=== PATIENT | male | born 1955 | race Caucasian/White ===

== ENCOUNTER 2018-09-25 16:56 | Emergency (ER) | payer MEDICARE, OTHER ==
[~2018-09-25] VITALS: Ht 175.3 cm; Wt 90.7 kg
[~2018-09-25 16:56] MED LIST: AUGMENTIN 875-1 EAC1 ORAL; BENTYL10 MG ORAL; CLINDAMYCIN HC300 MG ORAL; KEFLEX500 MG ORAL; LAMICTAL100 MG ORAL; LATUDA40 MG PO; LIBRIUM25 MG ORAL; NORCO 10-325 T1 EACH ORAL; NORCO 5-325 TA1 EACH ORAL; NORCO 5-325 TA1 EACH PO; PERCOCET 5-3251 EACH ORAL; PHENERGAN25 M1 ORAL; PROTONIX40 MG ORAL; PROZAC10 MG PO; PROZAC20 MG PO; RANITIDINE HCL150 MG ORAL; SEROQUEL300 MG ORAL; SERTRALINE HCL100 MG PO; SOMA350 MG PO; TOPAMAX100 MG ORAL; TRILEPTAL600 MG PO; VICODIN 5-5001 EACH PO
--- NOTE | 2018-09-25 17:24 | NUR ---
ED Nurse Note: Pt came in from home due to R 5th finger injury, "banged into something last night". Hematoma noted. Pain 9/10 mariaelena. Pt is on recovery program, no narcotics or benzo. Vital signs stable mariaelena. Will cont to monitor.
--- NOTE | 2018-09-25 17:25 | Emergency Room Report ---
History of Present Illness General Chief Complaint: Lower Extremity Injury Source: Patient, Medical Record Present Illness HPI Disclaimer: Please note that this report is being documented using [employer] technology. This can lead to erroneous entry secondary to incorrect interpretation by the dictating instrument. HPI: 62-year-old male with a history of alcohol abuse currently in a rehabilitation program presents for evaluation of right pinky toe injury. He accidentally hit it against a chest last night. Noted immediate pain, swelling and discoloration. Is able to walk there is very painful. No other injury sustained. Denies any recent fever/chills, chest pain, shortness of breath, vomiting, diarrhea. Denies skin breakdown or bleeding PMH: Hypertension, alcohol addiction PSH: Left shoulder, bilateral varicocelectomy Allergies: Codeine, vancomycin, sulfa drugs Social Hx: Former alcohol abuse, former opiate abuse Allergies: Coded Allergies: ASPIRIN (Verified Allergy, Severe, Anaphylaxis, 11/17/11) NSAIDS (NON-STEROIDAL ANTI-INFLAMMA (Verified Allergy, Severe, Anaphylaxis , 11/17/11) CODEINE (Verified Allergy, Mild, 07/16/14) SULFA (SULFONAMIDE ANTIBIOTICS) (Unverified Allergy, Unknown, 07/11/14) Uncoded Allergies: ETOH (Adverse Reaction, Unknown, 07/11/14) Reports causes migraine headaches Nursing Documentation-PMH Past Medical History: No History, Except For Hx Hypertension: No - Drug/alcohol abuse Hx Pacemaker: No Hx Asthma: No Hx COPD: No Hx Diabetes: No Hx Cancer: No Hx Gastrointestinal Problems: No Hx Dialysis: No History Of Psychiatric Problem: Yes - [place] Hx Neurological Problems: No - Migraine Hx Cerebrovascular Accident: No Hx Seizures: No Review of Systems All Other Systems: negative except mentioned in HPI Physical Exam Vital Signs Date Time Temp Pulse Resp B/P (MAP) Pulse Ox O2 Delivery O2 Flow Rate FiO2 09/25/18 17:00 98.4 71 18 110/75 (87) 96 Room Air General: Awake and alert, no acute distress HEENT: NC/AT. EOMI. Skin: Ecchymosis surrounding the fifth pinky toe. No laceration or breakdown MSK: Normal tone and bulk. Moving all extremities. Right pinky toe is swollen and purple. Some pain at the base and midshaft of the fifth metatarsal Neuro: Awake and alert. Mentating appropriately. Sensation intact over the feet bilaterally Medical Decision Making Diagnostic Impression: Primary Impression: Toe fracture, right Additional Impression: Foot contusion ER Course 62-year-old male presents for evaluation of toe injury. Strong suspicion for fracture of the pinky toe however more concerning would be a fifth metatarsal fracture. Will obtain an x-ray to rule this out. Otherwise, we can christiano tape the toe and the patient can be discharged to follow-up as needed. He is ambulatory. Other X-Ray Diagnostic Results Other X-Ray Diagnostic Results : X-Ray ordered: Right foot # of Views/Limited Vs Complete: 3 View Indication: Pain EP Interpretation: Yes Interpretation: no dislocation, other - No obvious fracture. Some soft tissue swelling. No dislocation. No Gillette fracture, no pseudo-Gillette fracture. Electronically Signed by: Electronically signed by Dr. Rigoberto Jackson Reevaluation Time: 18:14 Last Vital Signs Date Time Temp Pulse Resp B/P (MAP) Pulse Ox O2 Delivery O2 Flow Rate FiO2 09/25/18 17:00 98.4 71 18 110/75 (87) 96 Room Air Status: unchanged Reevaluation Impression No obvious fracture and no Gillette fracture is pseudo-Gillette. We will christiano tape the toe and the patient can be discharged with NSAIDs, ice. Instructed him to wear a stiff shoe for stability and protection. He will follow-up with his PMD as needed. Discussed reasons to return to the emergency department. He understands and agrees with treatment plan. Disposition: HOME, SELF-CARE Condition: Stable Rigoberto Jackson MD Sep 25, 2018 17:25
--- NOTE | 2018-09-25 18:18 | NUR ---
Attempted to christiano tape patients right 4th and 5th digit toe, patients significant other began to get verbably agressive towards me insisting that the equipment being used was "dirty and disgusting." I assured the patients significant other that all our equipment is sanitized thoroughly after each use. Patient then put shoes on and walked out of emergency room without christiano tape. AG and RN notified and aware.
[2018-09-25 18:25] VITALS: BP 110/75
--- NOTE | 2018-09-26 10:44 | Diagnostic Imaging Report ---
Indication: Pain after injury Technique: XRAY Foot Complete R Comparison: None Findings: No acute fracture or dislocation. Joint spaces are maintained. Lisfranc alignment is preserved. No acute soft tissue abnormality. Impression: No acute fracture or dislocation.
== END 2018-09-25 18:25 | disposition home or self-care (01) ==
LOC: EMR 17:55
DX: S92.351A Displaced fracture of fifth metatarsal bone, right foot, initial encounter for closed fracture (principal); I10 Essential (primary) hypertension; F10.20 Alcohol dependence, uncomplicated; Z88.6 Allergy status to analgesic agent; Z88.2 Allergy status to sulfonamides; Z88.1 Allergy status to other antibiotic agents; F31.9 Bipolar disorder, unspecified; W22.03XA Walked into furniture, initial encounter; Y92.9 Unspecified place or not applicable
CPT/HCPCS: 99283